=== PATIENT | male | born 1975 | race Two or more races ===

== ENCOUNTER 2025-06-14 06:00 | Day surgery (SDC) | payer OTHER ==
[2025-06-14] MEDS ORDERED: MIDAZOLAM HCL 2 MG/2 ML VIAL IV ONE (10:45)
[2025-06-14] MEDS ORDERED: fentaNYL CITRATE 50 MCG/ML AMPUL IV PUSH ONE (10:45)
[2025-06-14] MEDS ORDERED: DIPHENHYDRAMINE HCL 50 MG/ML VIAL 1ML IV ONE (10:45)
== END 2025-06-14 11:50 | disposition home or self-care (01) ==
LOC: AMB-ENDOS 06:00
PROVIDERS: ATTEND Internal Medicine
DX: C18.7 Malignant neoplasm of sigmoid colon (principal); K63.5 Polyp of colon; K57.30 Diverticulosis of large intestine without perforation or abscess without bleeding; K64.4 Residual hemorrhoidal skin tags; Z86.0101 Personal history of adenomatous and serrated colon polyps